=== PATIENT | male | born 1950 | race Caucasian/White ===

== ENCOUNTER 2018-02-21 20:05 | Emergency (ER) | payer MEDICARE, BC ==
[2018-02-21 20:15] VITALS: BP 124/74
--- NOTE | 2018-02-21 20:58 | XRAY Report ---
Procedure Date: 02/21/2018 Accession Number: [id number] / [id number] Procedure: XR - Shoulder 3 View LT CPT Code: FULL RESULT: EXAM: LEFT SHOULDER RADIOGRAPHY EXAM DATE: 02/21/2018 08:32 PM. CLINICAL HISTORY: Fall. COMPARISON: None. TECHNIQUE: 3 views. FINDINGS: Bones: No acute displaced fracture. No suspicious focal osseous lesion. Joints: Mild osteophytic spurring at the glenoid. The acromioclavicular joint is unremarkable. No subluxation/dislocation. Soft tissues: The visualized hemithorax is unremarkable. No soft tissue swelling. IMPRESSION: No acute osseous abnormality with mild glenohumeral DJD. RADIA
[2018-02-21] MEDS ORDERED: DEXAMETHASONE 10 MG/ML VIAL PO STA (21:44)
[2018-02-21] MEDS ORDERED: KETOROLAC 60 MG/2 ML VIAL IM STA (21:44)
--- NOTE | 2018-02-21 21:45 | ED Physician Documentation ---
PD HPI UPPER EXT INJURY - Stated complaint Stated Complaint: LT SHOULDER INJ - Chief complaint Chief Complaint: Trauma Ext - History obtained from History obtained from: Patient, Family - History of Present Illness Location: Left Type of injury: Fall Where injury occurred: Park Timing - onset: Today Timing - details: Abrupt onset Worsened by: Moving, Palpating Similar symptoms before: Has not had sx before Recently seen: Not recently seen - Additonal information Additional information: Patient is a 67 year old male with a history of parkinson's who is presenting to the emergency department for shoulder pain after falling. patient tripped landing on his left shoulder. Patient denies loc or other trauma at this time. Review of Systems Ten Systems: 10 systems reviewed and negative Musculoskeletal: reports: Extremity pain, Joint pain PD PAST MEDICAL HISTORY - Past Medical History Past Medical History: Yes Cardiovascular: High cholesterol Neuro: Parkinson's Endocrine/Autoimmune: HyPOthyroidism - Past Surgical History Past Surgical History: Yes Ortho: Spine surgery - Present Medications Home Medications: Ambulatory Orders Medication Instructions Recorded Confirmed Carbidopa/Levodopa 25/100 [Sinemet 1 tab PO QID 02/21/18 25 mg/100 mg] Levothyroxine [Synthroid] 1 tab PO DAILY 02/21/18 Lovastatin 20 mg PO DAILY 02/21/18 Ropinirole HCl 0.5 mg PO TID 02/21/18 02/21/18 - Allergies Allergies/Adverse Reactions: Allergies Allergy/AdvReac Type Severity Reaction Status Date / Time No Known Drug Allergies Allergy Verified 02/21/18 21:36 - Social History Does the pt smoke?: No Smoking Status: Never smoker Does the pt drink ETOH?: Yes Does the pt have substance abuse?: No - Immunizations Immunizations are current?: Yes PD ED PE NORMAL - Vitals Vital signs reviewed: Yes - General General: Alert and oriented X 3 - HEENT HEENT: Atraumatic - Cardiac Cardiac: RRR - Respiratory Respiratory: No respiratory distress - Derm Derm: Normal color - Neuro Neuro: Alert and oriented X 3, Normal speech Eye Opening: Spontaneous PD ED PE EXPANDED - Cardiac Cardiac: Radial strong equal - Extremities Extremities: Tenderness, Left shoulder (tenderness to palpation of left shoulder , decreased rom secondary to pain) Results - Vitals Vitals: Vital Signs - 24 hr 02/21/18 20:13 Temperature 36.4 C L Heart Rate 69 Respiratory 16 Rate Blood Pressure 124/74 O2 Saturation 96 Oxygen O2 Source Room air - Rads (name of study) left shoulder x-ray Radiology: Final report received (no acute fracture or dislocation) PD MEDICAL DECISION MAKING - ED course Complexity details: reviewed old records, reviewed results, re-evaluated patient , considered differential, d/w patient ED course: Patient was seen and examined at bedside. patietn had already been to imaging. When patient returned the results were reviewed. there was no acute fracture or dislocation. patient was treated with decadron and toradol. Patient required no further inpatient work up and was stable for discharge with outpatient follow up. - Sepsis Event Vital Signs: Vital Signs - 24 hr 02/21/18 20:13 Temperature 36.4 C L Heart Rate 69 Respiratory 16 Rate Blood Pressure 124/74 O2 Saturation 96 Oxygen O2 Source Room air Departure - Departure Disposition: 01 Home, Self Care Clinical Impression: Shoulder pain Condition: Good Instructions: ED Sprain Shoulder Follow-Up: Peterson Walsh MD [Provider Admit Priv/Credential] - Within 3 Days Comments: Your diagnostics today were within normal limits. there was no acute fracture or dislocation. You should ice your shoulder at least 6 times a day. you can take motrin or tylenol as needed for pain. You should try to keep your shoulder moving. You should follow up with Dr. Walsh if your sympotms persist. You may return to the emergency department at any time for new, worsening or uncontrollable symptoms.
[2018-02-21] MEDS ORDERED: DEXAMETHASONE 10 MG/ML VIAL ONE (22:24)
[2018-02-21] MEDS ORDERED: KETOROLAC 60 MG/2 ML VIAL ONE (22:25)
== END 2018-02-21 22:34 | disposition home or self-care (01) ==
LOC: ED 20:05
DX: M25.512 Pain in left shoulder (principal); G20 Parkinson's disease
CPT/HCPCS: 96372; 99283